=== PATIENT | male | born 1960 | race Caucasian/White ===

== ENCOUNTER 2025-05-19 13:23 | Emergency (ER) | payer MEDICARE, SELFPAY ==
[2025-05-19 13:25] VITALS: BP 162/89; PULSE 80; RESP 16; TEMP 36.6; O2SAT 99; BMI 25.8
--- NOTE | 2025-05-19 13:50 | EX.ED.UPPERE ---
HPI History of Present Illness Chief Complaint: Laceration Detail of Chief Complaint: Laceration to left index finger Informant: patient Narrative Narrative: Laceration to left index finger occurred prior to arrival in the emergency department. Patient was cutting some linoleum with a utility knife when he accidentally lacerated his finger. He is ambidextrous. He is unsure of his last tetanus shot. PFSH PFSH Allergy/AdvReac Type Severity Reaction Status Date / Time No Known Allergies Allergy Verified 05/19/25 13:26 Social History Smoking Status: Never smoker ROS ROS ED Review of Systems ROS Unobtainable: other Constitutional Constitutional ED: Reports lethargy; Denies chills, fever(s), sweats or weight loss Eyes Eyes: Denies blurry vision, change in vision or diplopia ENT ENT ED: Denies rhinorrhea or sore throat Cardiovascular Cardiovascular: Denies chest pain, orthopnea or racing heartbeat Respiratory/Chest Respiratory/Chest: Denies cough, dyspnea, dyspnea on exertion, orthopnea or sputum Gastrointestinal Gastrointestinal: Denies abdominal pain, diarrhea, nausea or vomiting Genitourinary Genitourinary ED: Denies dysuria, hematuria or urinary frequency Musculoskeletal Musculoskeletal: Reports other Details: Laceration left index finger ; Denies arthralgias, back pain, myalgias or neck pain Integumentary Denies abscess, Abrasions or rash Neurologic Neurologic: Denies headache(s) or weakness Psychiatric Psychiatric: Denies anxiety, depression or suicidal thoughts Endocrine Endocrinology: Denies polydipsia, polyphagia or polyuria Hematologic/Lymphatic Hematologic/Lymphatic: Denies easy bleeding, easy bruising or lymphadenopathy Allergic/Immunologic Allergic/Immunologic ED: Denies mouth swelling, tongue swelling or urticaria EXAM Physical Exam Const Vital Signs: 05/19/25 13:25 Temperature 97.9 F Temperature Source Oral Pulse Rate 80 Respiratory Rate 16 Blood Pressure 162/89 H Blood Pressure Mean 113 Pulse Ox 99 Oxygen Delivery Method Room Air Positive well nourished and well developed General Appearance ED: well developed and NAD HEENT Reports TM's clear and moist mucous membranes normocephalic and atraumatic; Negative for trauma or tenderness Tympanic Membrane ED: Yes TM's clear Eyes PERRL and EOMs intact bilaterally General Eye ED: Negative for pale conjunctiva or scleral icterus Neck no lymphadenopathy, supple and no JVD General: Negative for tenderness Chest Wall inspection of chest normal and palpation of chest normal Chest: Negative for tenderness Resp normal respiratory effort and clear to auscultation bilaterally Effort and Inspection: Negative for respiratory distress or pain with movement Auscultation: Negative for rhonchi, wheezes or diminished lung sounds Cardio regular rate, regular rhythm, S1 normal heart sound, S2 normal heart sound and no murmurs Peripheral Pulses: pulses 2+ throughout GI normal to inspection, nondistended, normoactive bowel sounds, soft to palpation, non-tender, non-distended and no masses Back/Spine no CVA tenderness and no thoracic nor lumbar tenderness Extremity Extremity Narrative: Patient with 2.5 cm laceration over the pulp of the distal phalanx of the index finger. Good range of motion flexion extension at the DIP and PIP joint. Neurovascular intact distally. General Extremety ED: Negative for edema General Extremity: Negative for edema Neuro oriented x3, CN's II-XII intact bilaterally, no sensory deficits noted and gait normal Sensorium / Orientation: awake, alert, oriented to person, oriented to place and oriented to time Motor Exam: strength 5/5 throughout and strength abnormal Psych mental status grossly normal Skin no rashes or lesions noted and no wounds MDM MDM MDM Narrative Medical decision making narrative: Patient with finger laceration to his left index finger. He was given tetanus booster. Please see procedure note for suture repair. He had a digital block performed and he tolerated procedure well. Clean dressing was applied. Advised to follow-up with primary care physician within next 10 days for suture removal. To return if increasing pain, redness, swelling, purulent drainage, or condition worsen anyway. Procedures Lacerations Finger laceration: Length: 0.98 in Depth: Sub Q Shape: Linear Prep: Sterile Conditions and Shure-Clens Laceration repair: Irrigated, Nerve block, Skin sutures and Wound explored Irrigated (ml): 50 Number of Sutures/Vidhya: 5 Suture Information: Ethilon, Simple and 5-0 Discharge Plan Triage Chief Complaint: Laceration ED Provider: Megan Terrazas Dx/Rx/DC Orders Clinical Impression: Finger laceration Instructions: ED Hand Laceration- All Closures Primary Care Provider: Care Physician,No Primary Referrals: Weston Montero MD [Med Staff - [facility], [facility]] - 10 Day for suture removal Care Physician,No Primary [Primary Care Provider, Medical] Print Language: Maltese Disposition Disposition: Home, Self Care
[2025-05-19] MEDS: Lidocaine 1% (20 ml mdv) 20 ML Vial 10 ML INFILT (14:03)
[2025-05-19 15:14] VITALS: BP 134/74; PULSE 69; RESP 16; TEMP 36.1; O2SAT 100
== END 2025-05-19 15:14 | disposition home or self-care (01) ==
PROVIDERS: Emergency Provider Emergency Medicine; Visit Provider Emergency Medicine
DX: S61.211A Laceration without foreign body of left index finger without damage to nail, initial encounter (principal); W26.0XXA Contact with knife, initial encounter; Z23 Encounter for immunization
CPT/HCPCS: 12001; 99283

== ENCOUNTER 2025-05-30 11:04 | Emergency (ER) | payer MEDICARE, SELFPAY ==
[2025-05-30 11:05] VITALS: BP 146/97; PULSE 94; RESP 16; TEMP 36.8; O2SAT 98; BMI 22.0
--- NOTE | 2025-05-30 11:24 | EX.ED.DYSGE1 ---
HPI History of Present Illness Chief Complaint: Suture Remv Informant: patient Onset/Context/Timing Onset: Days (11) Timing: Continuous Location: Distal phalanx left index finger Worsened by: Nothing Relieved by: Nothing Narrative Narrative: Patient presents for suture removal. Patient states he had 5 sutures placed in his left index finger 11 days ago. Patient states that the wound has been healing without complications. Patient states he did note some redness around the wound initially. Patient states he realized that his Neosporin ointment was out of date. Patient states that when he got a new tube of Neosporin ointment, the redness improved. Patient admits to some paresthesias over the radial aspect of the tip of the left index finger. PFSH PFSH Allergy/AdvReac Type Severity Reaction Status Date / Time No Known Allergies Allergy Verified 05/30/25 11:07 Social History Smoking Status: Never smoker ROS ROS ED Constitutional Constitutional ED: Denies chills or fever(s) Eyes Eyes: Denies blurry vision or change in vision ENT ENT ED: Denies rhinorrhea or sore throat Cardiovascular Cardiovascular: Denies chest pain or palpitations Respiratory/Chest Respiratory/Chest: Denies cough or dyspnea Gastrointestinal Gastrointestinal: Denies nausea or vomiting Genitourinary Genitourinary ED: Denies dysuria or hematuria Musculoskeletal Musculoskeletal: Denies back pain or neck pain Integumentary Denies abscess or rash Neurologic Neurologic: Reports paresthesias LUE; Denies headache(s) or weakness Allergic/Immunologic Allergic/Immunologic ED: Denies mouth swelling or urticaria EXAM Physical Exam Const Vital Signs: 05/30/25 11:05 Temperature 98.3 F Temperature Source Oral Pulse Rate 94 Respiratory Rate 16 Blood Pressure 146/97 H Blood Pressure Mean 113 Pulse Ox 98 Oxygen Delivery Method Room Air Positive well nourished and well developed General Appearance ED: well developed and NAD HEENT Reports moist mucous membranes Neck supple and no JVD Extremity Extremity Narrative: There is a healing laceration of the radial aspect of the distal phalanx of the left index finger. There is no erythema or warmth. There is no discharge or drainage. There is mild tenderness. There is full range of motion of the MP, PIP, and DIP joints. Capillary refill was less than 2 seconds in all digits. There is some hyperesthesia on the radial aspect of the distal phalanx of the left index finger. Neuro oriented x3, CN's II-XII intact bilaterally and no sensory deficits noted Sensorium / Orientation: alert Motor Exam: strength 5/5 throughout Psych mental status grossly normal MDM MDM MDM Narrative Medical decision making narrative: The wound was cleaned with alcohol prep pad. 5 simple interrupted sutures were removed without difficulty. Patient tolerated the procedure well. There is no bleeding noted. Bacitracin dressing was applied. Patient was instructed to follow-up with her primary care physician in 1 to 2 weeks. Patient was instructed to return if worse in any way. Patient understood and was agreeable with the plan. All questions were answered. Discharge Plan Triage Chief Complaint: Suture Remv ED Provider: Weston Broussard Dx/Rx/DC Orders Clinical Impression: Encounter for removal of sutures, Elevated blood pressure reading Instructions: Sutr or Stap Removal Primary Care Provider: Care Physician,No Primary Referrals: Lonny Villareal MD [Med Staff - [facility], [facility]] - 1-2 Weeks Care Physician,No Primary [Primary Care Provider, Medical] Print Language: Maltese Disposition Disposition: Home, Self Care
--- OUTSIDE RECORDS SUMMARY | 2025-05-30 11:52 | XMS RPT_ITS | CCD ---
Author Organization [facility] Care Team Providers Care Sand Technician Name Role Phone Emilio LEI, Guero Azevedo Primary Care Provider Allergies Allergy Classification Reported Allergen(s) Allergy Type Date of Onset Reaction(s) Facility [facility]io[facility] Agon[facility] (2 sources) Codeine Drug Allergy 09-28-2015 [facility] (3 sources) Codeine Drug Allergy 09-28-2015 [facility] Medications Current Medications Medication Drug Class(es) Dates Sig (Normalized) Sig (Original) aspirin 81 mg delayed release oral tablet (3 sources) Platelet Aggregation Inhibitor, Nonsteroidal Anti-inflammatory Drug take 1 tablet by mouth once daily aspirin 81 MG EC tablet Take 81 mg by mouth daily 0 Active ondansetron 4 mg disintegrating oral tablet (3 sources) Serotonin-3 Receptor Antagonist Start: 05-19-2021 take 1 tablet by mouth every eight hours as needed for nausea ondansetron (ZOFRAN ODT) 4 MG disintegrating tablet Take 1 tablet by mouth every 8 hours as needed for Nausea 20 tablet 0 05/19/2021 Active Start: 05-19-2021 End: 05-19-2021 ondansetron (ZOFRAN) injecti on 4 mg Completed/Discontinued Medications Medication Drug Class(es) Dates Sig (Normalized) Sig (Original) casirivimab ([id number]) 600 mg, imdevimab ([id number]) 600 mg in sodium chloride 0.9 % 110 mL IVPB (1 source) Start: 05-21-2021 End: 05-21-2021 casirivimab ([id number]) 600 mg, imdevimab ([id number]) 600 mg in sodium chloride 0.9 % 110 mL IVPB iopamidol (ISOVUE-370) 76 % injection 75 mL (1 source) Start: 11-20-2020 End: 11-20-2020 iopamidol (ISOVUE-370) 76 % injection 75 mL 50 ml sodium chloride 9 mg/ml injection (1 source) Start: 05-19-2021 End: 05-19-2021 0.9 % sodium chloride bolus Problems Active Problems Problem Classification Problem Date Documented Da te Episodic/Chronic Other skin disorders (1 source) Mass of neck; Translations: [Localized swelling, mass and lump, neck] Episodic Other upper respiratory disease (1 source) Mediastinal mass; Translations: [Other diseases of mediastinum, not elsewhere classified] Episodic Viral infection (2 sources) Disease caused by 2019-nCoV; Translations: [COVID-19] Episodic Past or Other Problems Problem Classification Problem Date Documented Da te Episodic/Chronic Thyroid disorders (6 sources) Mass of thyroid gland; Translations: [Disorder of thyroid, unspecified] Onset: 11-03-2020 Resolved: 11-23-2020 Episodic Results Test Name Value Interpretation Reference Range Facility Basic Metabolic Panelon 05-03 Calcium [Mass/Vol] 9.5 mg/dL Normal 8.4-10.4 [facility] Comment on above: Performed By: #### B MP3 #### [facility] [address] [place] [address] Glucose [Mass/Vol] 126 mg/dL High 70-100 [facility] Comment on above: Performed By: #### B MP3 #### [facility] [address] [place] [address] Anion gap [Moles/Vol] 10 mmol/L Normal 3-13 [facility] Comment on above: Performed By: #### B MP3 #### [facility] [address] [place] [address] CO2 [Moles/Vol] 23 mmol/L Normal 22-30 [facility] Comment on above: Performed By: #### B MP3 #### [facility] [address] [place] [address] Creatinine [Mass/Vol] 0.67 mg/dL Normal 0.52-1.25 [facility] Comment on above: Performed By: #### B MP3 #### [facility] [address] [place] [address] eGFR OTHER > 90.0 Normal >60 [facility] Comment on above: Result Comment: KDIG O guidelines provide the following GFR categories: Stage GFR(ml/min/1.73 m2) Terms G1 >=90 Normal or high G2 60-89 Mildly decreased* G3a 45-59 Mildly to moderately decreased G3b 30-44 Moderately to severely decreased G4 15-29 Severely decreased G5 <15 Kidney failure *Relative to young adult level. In the absence of evidence of kidney damage, neither GFR category G1 nor G2 fulfill the criteria for CKD. The CKD-EPI equation is validated in individuals 18 years of age and older. Currently the best equation for estimating glomerular filtration rate (GFR) from serum creatinine in children is the Bedside Stephens equation. It is less accurate in patients with extremes of muscle mass, restriction of dietary protein, ingestion of creatine, extra-renal metabolism of creatinine, or treatment with medications that affect renal tubular creatinine secretion. Performed By: #### B MP3 #### [facility] [address] [place] [address] GFR/1.73 sq M.predicted among blacks MDRD (S/P/Bld) [Vol rate/Area] mL/min/{1.73_m2} Normal >60 [facility] Comment on above: Performed By: #### B MP3 #### [facility] [address] [place] [address] Urea nitrogen [Mass/Vol] 17 mg/dL Normal 7-17 [facility] Comment on above: Performed By: #### B MP3 #### [facility] [address] [place] [address] Chloride [Moles/Vol] 105 mmol/L Normal 98-107 [facility] Comment on above: Performed By: #### B MP3 #### [facility] [address] [place] [address] Potassium [Moles/Vol] 3.9 mmol/L Normal 3.5-5.1 [facility] Comment on above: Performed By: #### B MP3 #### [facility] [address] [place] [address] Sodium [Moles/Vol] 138 mmol/L Normal 135-145 [facility] Comment on above: Performed By: #### B MP3 #### [facility] [address] [place] [address] Anion gap [Moles/Vol] 10 mmol/L 3 - 13 mmol/L [facility] Calcium [Mass/Vol] 9.5 mg/dL 8.4 - 10. 4 mg/dL [facility] Chloride [Moles/Vol] 105 mmol/L 98 - 10 7 mmol/L [facility] CO2 [Moles/Vol] 23 mmol/L 22 - 30 mmol/L [facility] Creatinine [Mass/Vol] 0.67 mg/dL 0.52 - 1.25 mg/dL [facility] EGFR IF NonAfrican Vietnamese >90.0 >60 mL/min [facility] Comment on above: KDIGO guidelines pro vide the following GFR categories: Stage GFR(ml/min/1.73 m2) Terms G1 >=90 Normal or high G2 60-89 Mildly decreased* G3a 45-59 Mildly to moderately decreased G3b 30-44 Moderately to severely decreased G4 15-29 Severely decreased G5 <15 Kidney failure *Relative to young adult level. In the absence of evidence of kidney damage, neither GFR category G1 nor G2 fulfill the criteria for CKD. The CKD-EPI equation is validated in individuals 18 years of age and older. Currently the best equation for estimating glomerular filtration rate (GFR) from serum creatinine in children is the Bedside Stephens equation. It is less accurate in patients with extremes of muscle mass, restriction of dietary protein, ingestion of creatine, extra-renal metabolism of creatinine, or treatment with medications that affect renal tubular creatinine secretion. GFR/1.73 sq M.predicted among blacks MDRD (S/P/Bld) [Vol rate/Area] mL/min/{1.73_m2} >60 mL/min [facility] Glucose [Mass/Vol] 126 mg/dL High 70 - 100 mg/dL [facility] Interpretation and review of laboratory results Abnormal [facility] Potassium [Moles/Vol] 3.9 mmol/L 3.5 - 5.1 mmol/L [facility] Sodium [Moles/Vol] 138 mmol/L 135 - 145 mmol/L [facility] Urea nitrogen (BldV) [Mass/Vol] 17 mg/dL 7 - 17 mg/dL [facility] Test Performed by [facility], [address], [place], [place] [address] [facility] ED Provider Noteon 1 ED Provider Note [facility] ED EMERGENCY DEPARTMENT ENCOUNTER Pt Name: Tulio Haas Birthdate 1960 Date of evaluation: 05/19/2021 Provider: Guru Montero MD CHIEF COMPLAINT Chief Complaint Patient presents with ? Positive For Covid-19 HISTORY OF PRESENT ILLNESS (Location/Symptom, Timing/Onset,Context/ Setting, Quality, Duration, Modifying Factors, Severity) Note limiting factors. Tulio Haas is a 60 y.o. male who presents to the emergency department patient is positive for COVID-19. Patient feels nauseated dehydrated. No chest pain. No fevers or chills does feel achy. He does feel at times short of breath. No back pain. No neck pain. Eating taking fluids well. Comes in to be seen. No chest pain. Symptoms started 8 days ago. HPI Nurse's notes for past medical history, surgical history, social history were reviewed. Medications and allergies reviewed. REVIEW OF SYSTEMS (2-9 systems for level 4, 10 or more for level 5) Review of Systems Total of 10 systems reviewed, please see pertinent positives, pertinent negatives above in HPI. PAST MEDICAL HISTORY Past Medical History: Diagnosis Date ? Irregular heart beats ? Whooping cough SURGICALHISTORY Past Surgical History: Procedure Laterality Date ? ABDOMINAL EXPLORATION SURGERY 11/28/1977 fell off anila ? APPENDECTOMY CURRENT MEDICATIONS Previous Medications ASPIRIN 81 MG EC TABLET Take 81 mg by mouth daily Codeine FAMILY HISTORY Family History Problem Relation Age of Onset ? High Blood Pressure Mother ? Hyperthyroidism Mother ? Heart Disease Father ? Heart Attack Father ? High Blood Pressure Father ? Diabetes Maternal Grandmother ? Cancer Brother SOCIAL HISTORY Social History Socioeconomic History ? Marital status: Single Spouse name: None ? Number of children: None ? Years of education: None ? Highest education level: None Occupational History ? None Tobacco Use ? Smoking status: Former Smoker Quit date: 09/27/1980 Years since quittin.6 ? Smokeless tobacco: Never Used Vaping Use ? Vaping Use: None Substance and Sexual Activity ? Alcohol use: Yes Alcohol/week: 1.0 - 2.0 standard drink Types: 1 - 2 Shots of liquor per week ? Drug use: Not Currently Types: Marijuana (Ernul) ? Sexual activity: None Other Topics Concern ? None Social History Narrative ? None Social Determinants of Health Financial Resource Strain: ? Difficulty of Paying Living Expenses: Not on file Food Insecurity: ? Worried About Running Out of Food in the Last Year: Not on file ? Ran Out of Food in the Last Year: Not on file Transportation Needs: ? Lack of Transportation (Medical): Not on file ? Lack of Transportation (Non-Medical): Not on file Physical Activity: ? Days of Exercise per Week: Not on file ? Minutes of Exercise per Session: Not on file Stress: ? Feeling of Stress : Not on file Social Connections: ? Frequency of Communication with Friends and Family: Not on file ? Frequency of Social Gatherings with Friends and Family: Not on file ? Attends Worship Services: Not on file ? Active Member of Clubs or Organizations: Not on file ? Attends Club or Organization Meetings: Not on file ? Marital Status: Not on file Intimate Partner Violence: ? Fear of Current or Ex-Partner: Not on file ? Emotionally Abused: Not on file ? Physically Abused: Not on file ? Sexually Abused: Not on file Housing Stability: ? Unable to Pay for Housing in the Last Year: Not on file ? Number of Places Lived in the Last Year: Not on file ? Unstable Housing in the Last Year: Not on file SCREENINGS PHYSICAL EXAM (up to 7 for level 4, 8 or more for level 5) ED Triage Vitals [05/19/21 1129] BP Temp Temp Source Pulse Resp SpO2 Height Weight (!) 139/98 98.3 ?F (36.8 ?C) Oral 90 18 97 % -- -- Appropriate PPE including n 95, gown, gloves, goggles where worn when appropriate with this patient. Physical Exam Vital signs reviewed. Not hypoxic general: Alert and oriented ?3 head: Atraumatic eyes: Equal round reactive to light and accommodating, pupils are equal, round and reactive to light and accommodation oropharynx: Clear and well hydrated neck: Supple no lymphadenopathy heart: Regular rate and rhythm, no murmurs lungs: Clear to auscultation bilaterally abdomen: Soft nontender, positive bowel sounds, no peritoneal findings. Extremities: Moving all fours, no tenderness. Normal capillary refill. Skin: No rash or lesions neurologically: Alert and oriented ?3, no focal deficit DIAGNOSTIC RESULTS No orders to display ED BEDSIDE ULTRASOUND: Performed by ED Physician - none LABS: Labs Reviewed BASIC METABOLIC PANEL - Abnormal; Notable for the following components: Result Value Glucose 126 (*) All other components within normal limits Narrative: Test Performed by [facility], [address], [place], [place] [address] All other labs (more content not included)... Normal [facility] Basic Metabolic Panelon 05-2 Calcium [Mass/Vol] 9.6 mg/dL Normal 8.4-10.4 [facility] Comment on above: Performed By: #### B MP3 #### [facility] [address] [place] [address] Glucose [Mass/Vol] 99 mg/dL Normal 70-100 [facility] Comment on above: Performed By: #### B MP3 #### [facility] [address] [place] [address] Anion gap [Moles/Vol] 5 mmol/L Normal 3-13 [facility] Comment on above: Performed By: #### B MP3 #### [facility] [address] [place] [address] CO2 [Moles/Vol] 29 mmol/L Normal 22-30 [facility] Comment on above: Performed By: #### B MP3 #### [facility] [address] [place] [address] Creatinine [Mass/Vol] 0.75 mg/dL Normal 0.52-1.25 [facility] Comment on above: Performed By: #### B MP3 #### [facility] [address] [place] [address] eGFR OTHER > 90.0 Normal >60 [facility] Comment on above: Result Comment: KDIG O guidelines provide the following GFR categories: Stage GFR(ml/min/1.73 m2) Terms G1 >=90 Normal or high G2 60-89 Mildly decreased* G3a 45-59 Mildly to moderately decreased G3b 30-44 Moderately to severely decreased G4 15-29 Severely decreased G5 <15 Kidney failure *Relative to young adult level. In the absence of evidence of kidney damage, neither GFR category G1 nor G2 fulfill the criteria for CKD. The CKD-EPI equation is validated in individuals 18 years of age and older. Currently the best equation for estimating glomerular filtration rate (GFR) from serum creatinine in children is the Bedside Stephens equation. It is less accurate in patients with extremes of muscle mass, restriction of dietary protein, ingestion of creatine, extra-renal metabolism of creatinine, or treatment with medications that affect renal tubular creatinine secretion. Performed By: #### B MP3 #### [facility] [address] [place] [address] GFR/1.73 sq M.predicted among blacks MDRD (S/P/Bld) [Vol rate/Area] mL/min/{1.73_m2} Normal >60 [facility] Comment on above: Performed By: #### B MP3 #### [facility] [address] [place] [address] Urea nitrogen [Mass/Vol] 16 mg/dL Normal 7-20 [facility] Comment on above: Performed By: #### B MP3 #### [facility] [address] [place] [address] Chloride [Moles/Vol] 105 mmol/L Normal 98-107 [facility] Comment on above: Performed By: #### B MP3 #### [facility] [address] [place] [address] Potassium [Moles/Vol] 4.1 mmol/L Normal 3.5-5.1 [facility] Comment on above: Performed By: #### B MP3 #### [facility] [address] [place] [address] Sodium [Moles/Vol] 139 mmol/L Normal 135-145 [facility] Comment on above: Performed By: #### B MP3 #### [facility] [address] [place] [address] Basic Metabolic PanelOrdered By: Guero Jhaveri on 11-20-2020 Anion gap [Moles/Vol] 5 mmol/L 3 - 13 mmol/L [facility] Work Phone: Calcium [Mass/Vol] 9.6 mg/dL 8.4 - 10. 4 mg/dL [facility] Work Phone: Chloride [Moles/Vol] 105 mmol/L 98 - 10 7 mmol/L [facility] Work Phone: CO2 [Moles/Vol] 29 mmol/L 22 - 30 mmol/L [facility] Work Phone: Creatinine [Mass/Vol] 0.75 mg/dL 0.52 - 1.25 mg/dL [facility] Work Phone: EGFR IF NonAfrican Vietnamese >90.0 >60 mL/min [facility] Work Phone: Comment on above: KDIGO guidelines pro vide the following GFR categories: Stage GFR(ml/min/1.73 m2) Terms G1 >=90 Normal or high G2 60-89 Mildly decreased* G3a 45-59 Mildly to moderately decreased G3b 30-44 Moderately to severely decreased G4 15-29 Severely decreased G5 <15 Kidney failure *Relative to young adult level. In the absence of evidence of kidney damage, neither GFR category G1 nor G2 fulfill the criteria for CKD. The CKD-EPI equation is validated in individuals 18 years of age and older. Currently the best equation for estimating glomerular filtration rate (GFR) from serum creatinine in children is the Bedside Stephens equation. It is less accurate in patients with extremes of muscle mass, restriction of dietary protein, ingestion of creatine, extra-renal metabolism of creatinine, or treatment with medications that affect renal tubular creatinine secretion. GFR/1.73 sq M.predicted among blacks MDRD (S/P/Bld) [Vol rate/Area] mL/min/{1.73_m2} >60 mL/min [facility] Work Phone: Glucose [Mass/Vol] 99 mg/dL 70 - 100 mg/dL [facility] Work Phone: Potassium [Moles/Vol] 4.1 mmol/L 3.5 - 5.1 mmol/L [facility] Work Phone: Sodium [Moles/Vol] 139 mmol/L 135 - 145 mmol/L [facility] Work Phone: Urea nitrogen (BldV) [Mass/Vol] 16 mg/dL 7 - 20 mg/dL [facility] Work Phone: Test Performed by [facility], [address] , [place], [place] [address] [facility] Work Phone: [facility] Work Phone: CT CHEST W CONTRASTOrdered B y: Guero Jhaveri on 11-20-2020 Patient Name: TULIO HAAS Computed Tomography ACCESSION EXAM DATE/TIME PROCEDURE ORDERING PROVIDER [id number] 11/20/2020 15:[address] Thorax w/ Contrast MD EMILIO, GUERO AZEVEDO CPT code 71113 Q9967 Reason For Exam (CT Thorax w/ Contrast) Mediastinal mass Report Examination: CT chest with contrast Indication: Mediastinal mass Technique: Axial CT images of the chest were obtained from the thoracic inlet through the lung bases at 1 mm intervals with IV contrast (75 cc Isovue 370). Coronal and sagittal reconstructions were also provided for review. Comparison: Recent thyroid ultrasound from 11/19/2020 Findings: Suspect capsular and possible synovial thickening of the right sternoclavicular joint. There is also mild calcification along the medial joint capsule as noted on coronal image 27 of series 4 and axial image 17 of series 2. No obvious soft tissue mass is demonstrated. No obvious articular erosions are demonstrated. The lungs are grossly unremarkable. The aorta and pulmonary artery are grossly of normal caliber. There is no mediastinal, hilar or axillary adenopathy noted. The heart is not significantly enlarged. There is no sizable pleural or pericardial effusion. Suspected renal cysts are incompletely covered on this study. Right renal midpole cystic lesion measures 4.3 cm in size. Small nonobstructing renal stone within the upper pole of the right kidney is noted. Diffusely diminished attenuation the liver is most suggestive of diffuse fatty infiltration. Suspect small curvilinear calcifications along the periphery of the right adrenal gland. Tiny endplate osteophytes of the thoracic spine are present at multiple levels. Impression Mild capsular and possible synovial thickening of the right sternoclavicular joint with possible small joint effusion. No obvious soft tissue mass. Consider therapeutic image guided steroid injection if there is pain in this location. Computed Tomography Report No mediastinal mass. Report Dictated on --- Final --- Dictating Physician: MD REYES KRIKOR Signed Date and Time: 11/20/2020 4:06 pm Signed by: MD REYES KRIKOR Transcribed Date and Time: 11/20/2020 4:07 [facility] Work Phone: [facility] Incoming Radiology Results From [facility] - 11/20/2020 4:07 PM EDT Patient Name: TULIO HAAS Computed Tomography ACCESSION EXAM DATE/TIME PROCEDURE ORDERING PROVIDER [id number] 11/20/2020 15:[address] Thorax w/ Contrast MD EMILIO, GUERO AZEVEDO CPT code 35198 Q9967 Reason For Exam (CT Thorax w/ Contrast) Mediastinal mass Report Examination: CT chest with contrast Indication: Mediastinal mass Technique: Axial CT images of the chest were obtained from the thoracic inlet through the lung bases at 1 mm intervals with IV contrast (75 cc Isovue 370). Coronal and sagittal reconstructions were also provided for review. Comparison: Recent thyroid ultrasound from 11/19/2020 Findings: Suspect capsular and possible synovial thickening of the right sternoclavicular joint. There is also mild calcification along the medial joint capsule as noted on coronal image 27 of series 4 and axial image 17 of series 2. No obvious soft tissue mass is demonstrated. No obvious articular erosions are demonstrated. The lungs are grossly unremarkable. The aorta and pulmonary artery are grossly of normal caliber. There is no mediastinal, hilar or axillary adenopathy noted. The heart is not significantly enlarged. There is no sizable pleural or pericardial effusion. Suspected renal cysts are incompletely covered on this study. Right renal midpole cystic lesion measures 4.3 cm in size. Small nonobstructing renal stone within the upper pole of the right kidney is noted. Diffusely diminished attenuation the liver is most suggestive of diffuse fatty infiltration. Suspect small curvilinear calcifications along the periphery of the right adrenal gland. Tiny endplate osteophytes of the thoracic spine are present at multiple levels. Impression Mild capsular and possible synovial thickening of the right sternoclavicular joint with possible small joint effusion. No obvious soft tissue mass. Consider therapeutic image guided steroid injection if there is pain in this location. Computed Tomography Report No mediastinal mass. Report Dictated on --- Final --- Dictating Physician: MD REYES KRIKOR Signed Date and Time: 11/20/2020 4:06 pm Signed by: MD REYES KRIKOR Transcribed Date and Time: 11/20/2020 4:07 [facility] Work Phone: [facility] Work Phone: CT Chest w/ Contraston 11-20 CT Chest w/ Contrast Patient Name: TULIO HAAS Computed Tomography ACCESSION EXAM DATE/TIME PROCEDURE ORDERING PROVIDER [id number] 11/20/2020 15:[address] Thorax w/ Contrast MD EMILIO, GUERO AZEVEDO CPT code 26273 Q9967 Reason For Exam (CT Thorax w/ Contrast) Mediastinal mass Report Examination: CT chest with contrast Indication: Mediastinal mass Technique: Axial CT images of the chest were obtained from the thoracic inlet through the lung bases at 1 mm intervals with IV contrast (75 cc Isovue 370). Coronal and sagittal reconstructions were also provided for review. Comparison: Recent thyroid ultrasound from 11/19/2020 Findings: Suspect capsular and possible synovial thickening of the right sternoclavicular joint. There is also mild calcification along the medial joint capsule as noted on coronal image 27 of series 4 and axial image 17 of series 2. No obvious soft tissue mass is demonstrated. No obvious articular erosions are demonstrated. The lungs are grossly unremarkable. The aorta and pulmonary artery are grossly of normal caliber. There is no mediastinal, hilar or axillary adenopathy noted. The heart is not significantly enlarged. There is no sizable pleural or pericardial effusion. Suspected renal cysts are incompletely covered on this study. Right renal midpole cystic lesion measures 4.3 cm in size. Small nonobstructing renal stone within the upper pole of the right kidney is noted. Diffusely diminished attenuation the liver is most suggestive of diffuse fatty infiltration. Suspect small curvilinear calcifications along the periphery of the right adrenal gland. Tiny endplate osteophytes of the thoracic spine are present at multiple levels. Impression Mild capsular and possible synovial thickening of the right sternoclavicular joint with possible small joint effusion. No obvious soft tissue mass. Consider therapeutic image guided steroid injection if there is pain in this location. Computed Tomography Report No mediastinal mass. Report Dictated on Final Dictating Physician: MD REYES KRIKOR Signed Date and Time: 11/20/2020 4:06 pm Signed by: MD REYES KRIKOR Transcribed Date and Time: 11/20/2020 4:07 Normal [facility] US Thyroid/Parathyroidon US Thyroid/Parathyroid Patient Name: TULIO HAAS Ultrasound ACCESSION EXAM DATE/TIME PROCEDURE ORDERING PROVIDER [id number] 11/19/2020 17:11 EDT US Parathyroid MD EMILIO, GUERO AZEVEDO CPT code 64754 Reason For Exam (US Parathyroid) thyromegally Report Exam type: Ultrasound thyroid CLINICAL INDICATION: Palpable mass within the neck in the region of the thyroid. COMPARISON: None. TECHNIQUE: Lopez scale sonographic images were obtained of the neck. Color and spectral Doppler was utilized. FINDINGS: The right lobe of the thyroid is homogeneous in echotexture measuring 1.7 x 1.7 x 4.4 cm in size. The left lobe of the thyroid is mildly heterogeneous measuring 1.5 x 1.6 x 4.0 cm in size. The isthmus measures 3 mm in thickness. No suspicious thyroid nodules or masses are identified. On the right at level six is a morphologically normal nonenlarged lymph node measuring 5 mm in short axis. On the right at level 7 underlying the area of palpable concern is a solid heterogeneous mass measuring 2.0 x 1.4 x 2.6 cm in size. There is overlying vascular flow. This area was difficult to visualize secondary to the adjacent clavicle and sternum. The patient was extremely tender in this location. IMPRESSION: 2.0 x 1.4 x 2.6 cm heterogeneous solid extrathyroidal mass underlying the area of palpable concern. This has overlying blood flow. This mass is suspicious and further evaluation with contrast enhanced CT is recommended. Report Dictated on Final Dictating Physician: MD MOISE YUN ROBERT Signed Date and Time: 11/20/2020 11:33 am Signed by: MD MOISE YUN ROBERT Transcribed Date and Time: 11/20/2020 11:34 Normal [facility] Vital Signs Date Time Vital Sign Value Performing Clinician Faci lity 05-21-2021 13:51-0500 Body temperature 98.49 [degF] Guero Jhaveri MD Work Phone: [facility] 05-21-2021 13:51-0500 Diastolic blood pressure 94 mm[Hg] Guero Jhaveri MD Work Phone: [facility] 05-21-2021 13:51-0500 Heart rate 90 /min Guero Jhaveri MD Work Phone: [facility] 05-21-2021 13:51-0500 SaO2% (BldA) [Mass fraction] 98 % Guero Jhaveri MD Work Phone: [facility] 05-21-2021 13:51-0500 Systolic blood pressure 126 mm[Hg] Guero Garrett Work Phone: [facility] 05-21-2021 13:39-0500 Respiratory rate 16 /min Guero Jhaveri MD Work Phone: [facility] 05-19-2021 11:29-0500 Body temperature 98.29 [degF] Guru Montero MD Work Phone: [facility] 05-19-2021 11:29-0500 Diastolic blood pressure 98 mm[Hg] Guru Garrett Work Phone: [facility] 05-19-2021 11:29-0500 Heart rate 90 /min Guru Montero MD Work Phone: [facility] 05-19-2021 11:29-0500 Respiratory rate 18 /min Guru Montero MD Work Phone: [facility] 05-19-2021 11:29-0500 SaO2% (BldA) [Mass fraction] 97 % Guru Montero MD Work Phone: [facility] 05-19-2021 11:29-0500 Systolic blood pressure 139 mm[Hg] Guru Montero MD Work Phone: [facility] Encounters Encounter Date Encounter Type Care Provider Facility Start: 05-21-2021 End: 05-21-2021 Subsequent hospital visit by physician Guero Jhaveri MD Work Phone: [facility] Comment on above: COVID-19 Start: 05-19-2021 End: 05-19-2021 Emergency department patient visit Guru Montero MD Work Phone: [facility] ED Comment on above: COVID-19 (Primary Dx ) Start: 03-12-2021 End: 03-12-2021 Subsequent hospital visit by physician Tadeo Medrano BATH ATTENDANT - STREET [employer] Work Phone: [facility] Comment on above: Neck mass Start: 11-20-2020 End: 11-20-2020 Subsequent hospital visit by physician Guero Jhaveri MD Work Phone: [facility] Comment on above: Mass of mediastinum Start: 11-19-2020 End: 11-19-2020 Subsequent hospital visit by physician Guero Jhaveri MD Work Phone: [facility] Comment on above: Thyroid mass Procedures Date Procedure Procedure Detail Performing Clinician Start: 05-19-2021 Basic metabolic pane l calcium total Guru Montero MD Work Phone: Start: 11-20-2020 Ct thorax w/contrast material Guero Jhaveri MD Work Phone: Start: 11-20-2020 Basic metabolic pane l calcium total Guero Jhaveri MD Work Phone: Plan of Treatment Date Care Activity Detail Author Start: 03-03-2021 Influenza vaccination [facility] Start: 2009 Screening for malign ant neoplasm of colon Colon cancer screen colonoscopy [facility] Work Phone: Start: 2009 Shingles Vaccine (1 of 2) Shingles Vaccine (1 of 2) [facility] Start: 2004 Screening for malign ant neoplasm of colon Colon cancer screen colonoscopy [facility] Start: 1999 Diabetes screen Diabetes screen [facility] Start: 1999 Lipid panel Lipid screen [facility] Start: 1978 DTaP/Tdap/Td vaccine (1 - Tdap) DTaP/Tdap/Td vaccine (1 - Tdap) [facility] Start: 1974 HIV screening HIV screen [facility] Start: 1971 COVID-19 Vaccine (1) COVID-19 Vaccin e (1) [facility] Start: 1959 Hepatitis C screening Hepatitis C sc reen [facility] End: 03-12-2021 MRI Chest W Contrast MRI Chest W Contrast Imaging Routine Neck mass 1 Occurrences starting 03/12/2021 until 03/12/2021 [facility] Work Phone: Comment on above: 1 Occurrences starti ng 03/12/2021 until 03/12/2021 End: 03-12-2021 MRI Chest W WO Contrast MRI Chest W WO Contrast Imaging Routine Neck mass 1 Occurrences starting 03/12/2021 until 03/12/2021 [facility] Work Phone: Comment on above: 1 Occurrences starti ng 03/12/2021 until 03/12/2021 End: 11-19-2020 US THYROID US THYROID Imaging Routine Thyroid mass 1 Occurrences starting 11/19/2020 until 11/19/2020 [facility] Work Phone: Comment on above: 1 Occurrences starti ng 11/19/2020 until 11/19/2020 US THYROID US THYROID Imagi ng Routine Thyroid mass 11/19/2020 5:11 PM EDT [facility] Work Phone: Social History Date Type Detail Facility Start: 11-03-2020 End: 01-28-2021 Tobacco smoking status NHIS Former smoker [facility] End: 09-27-1980 History of tobacco use Current smoker [facility] Start: 11-03-2020 End: 01-28-2021 Tobacco use and exposure Never used [facility] Start: 11-03-2020 End: 05-19-2021 Alcohol intake Current drinker of alcohol (finding) [facility] Work Phone: Start: 11-03-2020 History SDOH Alcohol Frequency 4 [facility] Work Phone: Start: 11-03-2020 History SDOH Alcohol Std Drinks 1 [facility] Work Phone: Start: 1960 Sex Assigned At Not on file [facility] Work Phone: Exposure to SARS-CoV -2 (event) Not sure [facility] Exposure to SARS-CoV -2 (event) Yes [facility] History of Present illness Narrative 05-21-2021 Sulma Tsai RN - 05/21/2021 1:30 PM EST Note Date & Type Note Facility 05-21-2021 History of Present illness Narrative Pt. felipe infusion well. No c/o distress. D/c instructions given with expressed understanding. documented in this encounter [facility] Work Phone: Hospital Discharge instructions 05-19-2021 InstructionsAttachments Note Date & Type Note Facility 05-19-2021 Hospital Discharg e instructions Guru Montero MD - 05/19/[address] Jhaveri today and have him call [phone]. This will arrange outpatient monoclonal antibody infusion. Information regarding SARS-COV-2 monoclonal antibody infusion for the treatment of coronavirus disease 2019 was verbally communicated to the patient consistent with Fact Sheet for Patients and Parents/Caregivers prior to receiving the infusion. The patient and/or Parents/Caregivers have been informed that SARS-COV-2 monoclonal antibody infusion is an unapproved treatment that is authorized for use under Emergency Use Authorization, they verbalize understanding and wish to proceed with infusion. The patient is aware that this EUA was issued for investigational treatment but does not constitute research on behalf of the hospital. The following attachments cannot be sent through Care Everywhere.Coronavirus Disease (COVID-19): General Info (Azeri)documented in this encounter [facility] Work Phone: Evaluation note Note Date & Type Note Facility Evaluation note Diagnosis Thyroid mass Unspecified disorder of thyroid documented in this encounter [facility] Work Phone: Evaluation note Note Date & Type Note Facility Evaluation note Diagnosis Mass of mediastinum Swelling, mass, or lump in chest documented in this encounter [facility] Work Phone: Evaluation note Note Date & Type Note Facility Evaluation note Diagnosis Neck mass Swelling, mass, or lump in head and neck documented in this encounter [facility] Work Phone: Evaluation note Note Date & Type Note Facility Evaluation note Diagnosis COVID-19- Primary documented in this encounter [facility] Work Phone: Evaluation note Note Date & Type Note Facility Evaluation note Diagnosis COVID-19 documented in this encounter [facility] Work Phone: Reason for Referral Status Reason Specialty Diagnoses / Procedures Referre d By Contact Referred To Contact [facility] Thyroid mass Procedures US THYROID Guero Jhaveri MD [address] [facility], [place] [address] Status Reason Specialty Diagnoses / Procedures Referre d By Contact Referred To Contact [facility] Mass of mediastinum Procedures CT CHEST W CONTRAST Guero Jhaveri MD [address] [place] [address] Status Reason Specialty Diagnoses / Procedures Referre d By Contact Referred To Contact [facility] Neck mass Procedures MRI Chest W WO Contrast Tadeo Medrano APRN - STREET [employer] [address] [place] [address] Status Reason Specialty Diagnoses / Procedures Referre d By Contact Referred To Contact [facility] Neck mass Procedures MRI Chest W Contrast Tadeo Medrano BATH ATTENDANT - STRE[employer] [address] [place] [address] Advance Directives No Advanced Directives Records FoundDocuments on File Type Date Recorded Patient Mother Superior Expl anation ACP-Advance Directive ACP-Power of Heart Specialist Documents on File Type Date Recorded Patient Mother Superior Expl anation ACP-Advance Directive ACP-Power of Heart Specialist Summary Purpose Family History No Family History Records Found Additional Source Comments Reason for Visit (unrecogniz ed section and content) Status Reason Specialty Diagnoses / Procedures Referre d By Contact Referred To Contact [facility] Neck mass Procedures MRI Chest W WO Contrast Tadeo Medrano BATH ATTENDANT - STREET [employer] [address] [place] [address] Reason Comments Positive For Covid-19 Ordered Prescriptions (unrec ognized section and content) Prescription Sig Dispensed Refills Start Date End Da te ondansetron (ZOFRAN ODT) 4 MG disintegrating tablet Take 1 tablet by mouth every 8 hours as needed for Nausea 20 tablet 0 05/19/2021 Scheduled Active and Recently Administ ered Medications (unrecognized section and content) Medication Order 05/17/2021 05/18/2021 05/19/2021 0.9 % sodium chloride bolus (COMPLETED) 1,000 mL, IntraVENous, at 1,000 mL/hr, Administer over 1 Hours, ONCE, On Mon05/19/21 at 1129, For 1 dose 1136 (New Bag - Prov ider: Hill Arias RN)[id number] (Stopped - Provider: Hill Arias RN) ondansetron (ZOFRAN) injection 4 mg (COMPLETED) 4 mg, IntraVENous, ONCE, On Mon05/19/21 at 1130, For 1 dose 1136 (Given - Provid er: Hill Arias RN) Care Teams (unrecognized sec tion and content) Sand Technician Relationship Specialty Start Date End Date Guero Jhaveri MD [address] [facility] [place] [address] PCP - General Family Medicine 09/28/15 Sand Technician Relationship Specialty Start Date End Date [place] [address] PCP - General Family Medicine 09/28/15 (unrecognized sect ion and content) No Status Records Found INFORMATION SOURCE (unrecogn ized section and content) DATE CREATED AUTHOR 08/03/2021 [facility] FOR RECORDS PERTAINING TO PATIENTS WHO ARE OR HAVE BEEN ENROLLED IN A CHEMICAL DEPENDENCY/SUBSTANCEABUSE PROGRAM, SOME INFORMATION MAY BE OMITTED. This clinical summary was aggregated from multiple sources. Caution should be exercised in using it in the provision of clinical care. This summary normalizes information from multiple sources, and as a consequence, information in this document may materially change the coding, format and clinical context of patient data. In addition, data may be omitted in some cases. CLINICAL DECISIONS SHOULD BE BASED ON THE PRIMARY CLINICAL RECORDS. [employer] [facility]. provides no warranty or guarantee of the accuracy or completeness of information in this document.
== END 2025-05-30 12:09 | disposition home or self-care (01) ==
PROVIDERS: Emergency Provider Emergency Medicine; Visit Provider Emergency Medicine
DX: Z48.02 Encounter for removal of sutures (principal); R03.0 Elevated blood-pressure reading, without diagnosis of hypertension; S61.211D Laceration without foreign body of left index finger without damage to nail, subsequent encounter; X58.XXXD Exposure to other specified factors, subsequent encounter
CPT/HCPCS: 99282